=== PATIENT | female | born 1965 | race Caucasian/White ===

== ENCOUNTER 2025-07-31 10:32 | Emergency (ER) | payer OTHER, SELFPAY ==
[2025-07-31 10:35] VITALS: BP 150/94
[2025-07-31 11:04] LABS: Hematocrit 44.7 % (37.0-47.0); Hemoglobin 14.7 g/dL (12.0-16.0); Mean Corp Hgb Conc. 32.9 g/dL (33.0-37.0); Mean Corpuscular Volume 92.5 fL (81.0-99.0); Nucleated Red Blood Cells % 0 %; Platelet Count 209 10^3/uL (130-400); Red Cell Dist. Width 13.3 % (11.5-14.5)
[2025-07-31 11:05] LABS: Urine Character Slightly Cloudy (Clear)
[2025-07-31 11:19] LABS: ALT (SGPT) 18 U/L (0-35); AST (SGOT) 17 U/L (14-36); Albumin 4.4 g/dl (3.5-5.0); Alkaline Phosphatase 81 U/L (38-126); Blood Urea Nitrogen 17 mg/dl (7-17); Calcium 9.2 mg/dl (8.4-10.2); Carbon Dioxide 25 mmol/L (22-30); Chloride 103 mmol/L (98-107); Glucose 112 mg/dl (70-99); Potassium 3.8 mmol/L (3.5-5.1); Sodium 135 mmol/L (135-145); Total Protein 7.8 g/dl (6.3-8.2); eGFR > 60.00
[2025-07-31 11:26] LABS: Urine Squamous Cell >30 /LPF (Few)
[2025-07-31] MEDS: TORADOL 15 MG IV (11:45)
[2025-07-31] MEDS: NSS 1000 IV (11:45)
--- NOTE | 2025-07-31 11:49 | ED.GENMED ---
History of Present Illness
General
Chief Complaint: Flank Pain
Source: patient
Exam Limitations: none
Time Seen by Provider: 07/31/25 11:11
Nursing documentation reviewed up to this point in time: agreed with
History of Present Illness
History of Present Illness:
Patient is a 60-year-old female with history of hypertension who presents to the emergency department with 2 days of left-sided abdominal pain. She describes a constant pain in left lower abdomen radiating around to her left low back/flank. Pain
seems to be worsening over the past few days. She reports nausea however denies any vomiting. Her bowel movements have been less frequent over the past few days. No dysuria or obvious hematuria. No known fevers. No chest pain or shortness of breath.
She has hx of kidney stones and feels these symptoms are presenting somewhat differently that previous stones.
Review of Systems
Review of Systems
Allergies reviewed?: Yes
All Other Systems: ROS reviewed and negative except as documented in HPI and ROS
Phy Exam
Physical Exam
Physical Exam:
Vitals: Tachycardic on arrival, improved by my assessment. Nontoxic appearing
General: Patient is well appearing, no acute distress
Skin: Warm and dry, no rashes or lesions
Head: Normocephalic, atraumatic
Eyes: Sclera nonicteric.
Throat: Protecting airway
Neck: Normal ROM, no cervical spine tenderness, no meningismus
Cardiac: Regular rate and rhythm, no murmurs.
Pulm: Normal respiratory effort, no wheezes, rales, rhonchi heard on exam
.
Abdomen: Abdomen soft. Moderate tenderness in LLQ. No rebound tenderness or guarding. No CVA tenderness. No rash.
Extremities: No evidence of cyanosis or edema
Neuro: AAOx3. Grossly intact.
Psychiatric: Normal affect.
Course
Orders/Labs/Results
Orders:
Orders
07/31/25 10:47
Complete Blood Count/With Diff Urgent
Comprehensive Metabolic Panel Urgent
Urinalysis Reflex To Culture Urgent
Date Specimen was Collected: 07/31/25
Time Specimen was Collected: 10:38
Urine Microscopic Reflex Cult Urgent
Urine Culture Urgent
LUZ Source: U
Specimen Description:
Date Specimen was Collected: 07/31/25
Time Specimen was Collected: 10:38
07/31/25 11:27
0.9% Sodium Chloride 1000 ml [Nss] 1,000 ml IV BOLUS
Ketorolac [Toradol] 15 mg IV NOW STA
07/31/25 11:29
CT Abd/pelvis W Iv Cont Urgent
Comment:
Reason For Exam: LLQ pain
07/31/25 14:40
Amoxicillin 875 mg/Clav 125 mg [Augmentin 875 mg/125 mg] 1 tablet PO NOW STA
Abnormal Lab Results
07/31/25
10:47
WBC 16.0 H 10^3/uL
(4.8-10.8)
MCHC 32.9 L g/dL
(33.0-37.0)
MPV 12.2 H fL
(7.4-10.4)
Abs Immat Gran (auto) 0.1 H 10^3/uL
(0-0.05)
Absolute Neuts (auto) 12.5 H 10^3/uL
(1.4-6.5)
Absolute Monos (auto) 1.1 H 10^3/uL
(0.1-0.6)
Neutrophils % 77.9 H %
(42.2-75.2)
Lymphocytes % 14.3 L %
(20.5-51.1)
Glucose 112 H mg/dl
(70-99)
Total Bilirubin 2.0 H mg/dl
(0.2-1.3)
Urine Ketones 3+ A
(Negative)
Ur Occult Blood Reflex 4+ A
(Negative)
Leukocyte Esterase Rfl 1+ A
(Negative)
Urine RBC 3-6 A /HPF
(0-2)
Urine Bacteria (Reflex) Moderate A
(Negative)
Urine Albumin (Reflex) 2+ A
(Neg - Trace)
07/31/25 10:47
07/31/25 10:47
Vital Signs
Initial and Last Documented VS:
Initial Vital Signs
Temp Pulse Resp BP Pulse Ox
98.4 F 110 20 150/94 98
07/31/25 10:35 07/31/25 10:35 07/31/25 10:35 07/31/25 10:35 07/31/25 10:35
Last Documented Vital Signs
Temp Pulse Resp BP Pulse Ox
98.4 F 86 20 112/70 99
07/31/25 10:35 07/31/25 14:18 07/31/25 14:18 07/31/25 14:18 07/31/25 14:18
MDM/Problems Addressed
Differential Diagnosis Includes:
Not limited to: diverticulitis, renal colic, pyelonephritis, appendicitis, bowel obstruction, etc
MDM/Problems Addressed:
60-year-old female with four days of left lower quadrant abdominal pain radiating to back. No fevers or urinary symptoms. Vitals and physical exam as above. She does have reproducible tenderness in left lower quadrant. No CVA tenderness or rash.
Differential as above.
Will obtain labs, UA, CT scan abdomen/pelvis with IV contrast. Will treat pain and give IV fluids.
Update: labs reveal leukocytosis of 16,000. Chemistry unremarkable. Urine does show few RBCs however no evidence of acute infection. CT scan shows findings of acute diverticulitis at junction of descending/sigmoid colon. No evidence of abscess or
perforation.
Patient�s pain is well controlled. Given she is afebrile without any complicating factors seen on imaging � feel stable for discharge home on oral antibiotics. Will start patient on course of Augmentin. Advised clear liquid diet. Discussed strict
return precautions. Patient stable for discharge home.
Chronic conditions affecting care:
History of kidney stones
Acute Exacerbation and/or Progression of Chronic Illness:
N/A
*Radiology
Radiology exam reviewed: radiology read reviewed
*Pulse Oximetry
SaO2: 98
Oxygen Mode of Delivery: Room air
Patient hypoxic: no
*EKG
Interpreted by ED Provider?: NA
*Sustainable Systems Analyst Interpretation
Rate: Sustainable Systems Analyst- N/A
*Critical Care Note
Total Time (30-74mins, 75-104mins- exclusive of procedures): Not Applicable
ED Attending Note
-
Portions of this chart may have been created with voice recognition software.� Occasional wrong word or��sound alike� substitutions may have occurred due to the inherent limitations of voice recognition software.
Discharge Plan
Departure
Patient Disposition: Home (Routine Discharge)
Date of Disposition: 07/31/25
Time of Disposition: 14:40
Patient with high blood pressure during this ER visit?: Yes
Condition: Good
Discharge Problem:
Acute diverticulitis
Instructions: Diverticulitis, Clear Liquid Diet, BLOOD PRESSURE
Prescriptions:
New
amoxicillin-pot clavulanate 875-125 mg tablet
1 tab PO BID 10 Days Qty: 20 0RF
Referrals:
Sophia Kohler MD [Active, Gastroenterology] - Next open appointment
NONE,* [Family Provider, Internal Medicine]
Activity Restrictions/Additional Instructions:
RETURN TO THE EMERGENCY DEPARTMENT ANY FEVER, CHILLS, PERSISTENT/WORSENING ABDOMINAL PAIN, VOMITING, WORSENING IN CURRENT SYMPTOMS, OR ANY OTHER CONCERNS
- As CT scan showed findings of acute diverticulitis. A prescription for antibiotics has been sent to your pharmacy. Please take twice a day for the next 10 days.
- You can take Tylenol and/or Motrin as needed for pain. I would follow a clear liquid diet over the next few days and slowly advance to low fiber. It is important to stay well-hydrated.
- Follow-up with primary care and GI for further evaluation/management and to ensure that your symptoms are improving
Monitor your symptoms closely and return to the emergency department with any acute worsening/new symptoms or any other concerns
Interventions
Interventions:
*Risk Screen - Suicide Last Done: 07/31/25 10:35
*General Assessment Last Done: 07/31/25 10:35
*Nursing Disposition Last Done: 07/31/25 14:59
SN-Newnhe-Pznhmjszoq Assessment Last Done: 07/31/25 11:20
ED-Female Genitourinary Assessment Last Done: 07/31/25 11:27
Discharge Date and Time
Discharge Date/Time: 07/31/25 15:00
Print Language: BELARUSIAN
[2025-07-31 14:18] VITALS: BP 112/70
[2025-07-31] MEDS: AUGMENTIN 875 MG/125 MG 1 TABLET PO (14:55)
== END 2025-07-31 15:00 | disposition home or self-care (01) ==
LOC: EMR 10:32
PROVIDERS: EMERGENCY PHYSICIAN Emergency Medicine
DX: K57.32 Diverticulitis of large intestine without perforation or abscess without bleeding (principal); I10 Essential (primary) hypertension; Z87.442 Personal history of urinary calculi
CPT/HCPCS: 99284; 96374; 96361; 74177; 80053; 81003; 81015; 85025; 87086; Q9967